=== PATIENT | female | born 1990 | race Caucasian/White ===

== ENCOUNTER 2016-07-27 17:46 | Emergency (ER) | payer MEDICAID ==
[~2016-07-27] VITALS: Ht 172.7 cm; Wt 75.7 kg
[~2016-07-27 17:46] MED LIST: ACET-62 PO; NO ROUTINE MEDS; SULF1TAB42 PO
--- OUTSIDE RECORDS SUMMARY | 2016-07-27 17:52 | XMS REPORT | Continuity of Care Document ---
Author Author Naye Yancey Address Unknown Phone Unavailable Care Team Providers Care Control Room Technician Name Role Phone [employer] Unavailable Unavailable Problems Medications Allergies, Adverse Reactions, Alerts Immunizations Results Order Name Results Value Reference Range Date Interpretation Comments Source Parent NGS Parent NGS Genomics Case Created 01/27 NA This order is for collection purposes only. The Genomics case will be created seperately.
[facility] zGayle Gen Kassi Gen 01/27/2016 [facility] Final Report Final Report Blood [id number] DNA isolation/storage for future study. [id number] Lab use only. Electronically signed by: Nay Haro 03/21/2016 09:08</br> 01/27/2016 Electronically signed by: Nay Haro 03/21/2016 09:08 [facility] Vital Signs Encounters Location Location Details Encounter Type Encounter Number Reason For Visit Attending Provider ADM Date DC Date Status Source [facility] REF [id number] Sisi Melara 01/27/2016 01/27/2016 Active [facility] Procedures Plan of Care Social History Assessment and Plan Family History Value Date Source Advance Directives Order Name Results Value Date Source
--- OUTSIDE RECORDS SUMMARY | 2016-07-27 17:52 | XMS REPORT | Continuity of Care Document ---
Author Author [facility] Organization [facility] Address Unknown Phone Unavailable Support Name Relationship Address Phone MONTANA RIBERA MD Caregiver [address] [place] [address] [place] [address] Unavailable SUPRIYA DENG Next Of Kin [address], [place] [id number] Insurance Providers Guarantor Marino Deng Address [address] [place] [address] Email DENIED 06-25-16 Payer [facility] Community Plan Policy Number [id number] Subscriber's Name Marino Deng Relationship 18 Self Effective Date 16 Expiration Date 16 Chief Complaint and Reason for Visit Chief Complaint Flank Pain Reason for Visit [id number] Problems Active Problems Medical Problem Onset Date Status MRSA (methicillin resistant Staphylococcus aureus) Unknown (spontaneous vaginal delivery) Unknown Past Problems Medical Problem Onset Date Abscess Unknown Sacroiliitis Unknown Medications Current Home Medications Medication Dose Units Route Directions Days Qty Instructions Start Date Acetaminophen 500 Mg Tablet 1,000 Mg Oral Every 8 Hours as needed for Pain 06/25/16 No Routine Meds 06/22/16 Sulfamethoxazole/Trimethoprim (Bactrim Ds Tablet) 1 Each Tablet 1 Tab Oral Twice A Day 10 Days 20 Tablet 06/22/16 Social History Social History Problem Response Recorded Date/Time Onset Date Status Hx Substance Use No 06/25/2016 7:51pm Not Applicable Not Applicable Hx Alcohol Use Y OCCASIONALLY 06/25/2016 7:51pm Not Applicable Not Applicable Has the pt used tobacco in the last 12 months No 12/24/2015 6:40am Not Applicable Not Applicable Query Response Start Date Stop Date Smoking Status Former smoker Hospital Discharge Instructions No hospital discharge instructions. Plan of Care Discharge Date 06/25/16 8:40pm Disposition 01 DISCHARGED HOME, SELF-CARE Condition at Discharge Stable Instructions/Education Provided Sacroiliitis (ED) Prescriptions See Medication Section Additional Instructions/Education Take some Ibuprofen or Naproxen on an as needed basis. May also try some Tylenol as needed as well. Use the Cyclobenzaprine as needed for pain. If you are not improving at all then follow with your primary care provider. Care Plan and Goals Physician Care Plan Problem:Sacroiliitis Goal: Follow up with primary care provider Instructions: Take medications and follow care plan as discussed/written Functional Status No functional status results. Allergies, Adverse Reactions, Alerts Allergen Type Severity Reaction Status Last Updated Metoclopramide Allergy Unknown ANXIETY Active 06/25/16 Immunizations Query Response on File Recorded Date/Time DTaP Vaccine History UTD, PER PT 06/25/16 7:51pm Influenza Vaccine Hx NOT REC'D 06/25/16 7:51pm Tdap Vaccine Hx 12/24/15 12/24/15 2:30pm Vital Signs Acute Vital Signs Vital Response Date/Time Temperature (Fahrenheit) 98.5 deg F (96.8 - 99.1) 06/25/2016 8:35pm Temperature (Calculated Celsius) 36.23225 degrees C (36.0 - 37.3) 06/25/2016 8:35pm Pulse Rate (adult) 75 bpm (60 - 100) 06/25/2016 8:35pm Respiratory Rate 15 breaths/min (10 - 20) 06/25/2016 8:35pm O2 Sat by Pulse Oximetry 99 % (90 - 100) 06/25/2016 8:35pm Blood Pressure 115/60 mm Hg 06/25/2016 8:35pm Height (Feet) 5 feet 06/25/2016 7:46pm Height (Inches) 8.00 inches 06/25/2016 7:46pm Weight (Kilograms) 79.100 kg 06/25/2016 7:46pm Body Mass Index (BMI) 26.0 06/25/2016 7:46pm Results Laboratory Results Test Name Result Units Flags Reference Collection Date/Time Result Date/ Time Comments Urine Collection Type CLEANCATCH-MIDSTREAM 06/25/2016 7:59pm 2016 8:09pm Urine Color YELLOW YELLOW 06/25/2016 7:59pm 06/25/2016 8:09pm Urine Turbidity CLEAR CLEAR 06/25/2016 7:59pm 06/25/2016 8:09pm Urine Specific [place] 1.025 1.015-1.025 06/25/2016 7:59pm 2016 8:09pm Urine pH 5.5 5.0-8.0 06/25/2016 7:59pm 06/25/2016 8:09pm Urine Leukocyte Esterase NEGATIVE NEGATIVE 06/25/2016 7:59pm 2016 8:09pm Urine Nitrite NEGATIVE NEGATIVE 06/25/2016 7:59pm 06/25/2016 8:09pm Urine Protein NEGATIVE NEGATIVE 06/25/2016 7:59pm 06/25/2016 8:09pm Urine Glucose (UA) NEGATIVE NEGATIVE 06/25/2016 7:59pm 06/25/2016 8: 09pm Urine Ketones NEGATIVE NEGATIVE 06/25/2016 7:59pm 06/25/2016 8:09pm Urine Urobilinogen 0.2 EU/DL NORMAL 06/25/2016 7:59pm 06/25/2016 8: 09pm Urine Bilirubin NEGATIVE NEGATIVE 06/25/2016 7:59pm 06/25/2016 8: 09pm Urine Blood NEGATIVE NEGATIVE 06/25/2016 7:59pm 06/25/2016 8:09pm Urinalysis Comment MICROSCOPIC NOT IND. 06/25/2016 7:59pm 2016 8:09pm Procedures No known history of procedures. Encounters Encounter Location Arrival/Admit Date Discharge/Depart Date Attending Provider Departed Emergency Room [facility] 06/25/16 7:39pm 06/25/16 8: 40pm MONTANA RIBERA MD Departed Emergency Room [facility] 06/22/16 2:36pm 06/22/16 4: 00pm ANA LILIA TOWNSEND DO Recent Diagnosis
[2016-07-27 17:53] VITALS: Ht 172.7 cm; Wt 75.7 kg
--- OUTSIDE RECORDS SUMMARY | 2016-07-27 18:19 | XMS REPORT | Continuity of Care Document ---
Author Author Naye Yancey Address Unknown Phone Unavailable Care Team Providers Care Noodle Press Operator Name Role Phone [employer] Unavailable Unavailable Problems Medications Allergies, Adverse Reactions, Alerts Immunizations Results Order Name Results Value Reference Range Date Interpretation Comments Source Parent NGS Parent NGS Genomics Case Created 01/27 NA This order is for collection purposes only. The Genomics case will be created seperately.
[facility] zGayle Gen Kassi Gen 01/27/2016 [facility] Final Report Final Report Blood [id number] DNA isolation/storage for future study. [id number] Lab use only. Electronically signed by: Nay Haro 03/21/2016 09:08</br> 01/27/2016 Electronically signed by: Nay Haro 03/21/2016 09:08 [facility] Vital Signs Encounters Location Location Details Encounter Type Encounter Number Reason For Visit Attending Provider ADM Date DC Date Status Source [facility] REF [id number] Sisi Melara 01/27/2016 01/27/2016 Active [facility] Procedures Plan of Care Social History Assessment and Plan Family History Value Date Source Advance Directives Order Name Results Value Date Source
--- NOTE | 2016-07-27 18:41 | ERPDOC ---
Departure Disposition Decision Date: Jul 27, 2016 Disposition Decision Time: 18:39 Disposition: 01 DISCHARGED HOME, SELF-CARE Impression Impression Impression: Primary Impression: Left wrist sprain Encounter type: initial encounter Qualified Codes: S63.502A - Unspecified sprain of left wrist, initial encounter Severity: Moderate Condition: Stable Seen By: Mid-level only Patient Instructions: Wrist Sprain (ED) Problems/Meds/Labs Reviewed?: Yes Medications reviewed and manag: Yes Additional Instructions: Wear the splint as needed for pain. Ice and elevate. If this is not improving at all in the next 10-14 days then please follow up with your primary care provider for re-xray of the wrist. Follow up care ordered?: Yes Mental Status: Alert HPI General Chief Complaint: Upper Extremity Injury Stated Complaint: LEFT WRIST PAIN Time Seen by Provider: 18:08 Source: patient Exam Limitations: no limitations HPI Hand/Forearm Initial Comments Yesterday she was at home and fell. She landed on the left wrist and has had pain in the radial aspect of the wrist since then around the area of the snuffbox. She states that she had injured this wrist when she was 14 and had to wear a cast for a month. Did not follow up with the wrist after that. Has pain with flexion and/or extension of the wrist. Denies any numbness/tingling in the fingers. Occurred At: home Onset: Rapid Duration: 12-24 hrs Severity: moderate Location: left: wrist Method of Injury: fell Associated Symptoms: pain with extension, pain with flexion, pain with grasp, DENIES: bruising, numbness, pallor, red streaks, redness, swelling, weakness Allergies: Coded Allergies: metoclopramide (Verified Allergy, Unknown, ANXIETY, 07/27/16) Past History Past Medical History Pt denies signifigant [facility] Surgical History Denies Surgeries Family History Family History: Negative Social History Tobacco Usage: none Alcohol Usage: none Drug Usage: none IV Drug Use: No Review of Systems Constitutional Constitutional: DENIES: chills, dizziness, fatigue, fever, weakness Musculoskeletal General: joint pain (left wrist), pain (left wrist), tenderness (left distal radius), DENIES: joint swelling Neurological General: DENIES: numbness, tingling Exam General General Nourishment: well nourished, well developed, appears stated age, no acute distress, adult General Body Habitus: well groomed Vital Signs: RN Vital Signs have been reviewed: Yes, Temperature: 98.3, Source : Oral, Heart Rate: 88, Respiratory Rate: 20, BP: 116/63, Pulse Oximetry: 98 Height (Feet): 5 Height (Inches): 8.00 [place]rak Hand/Forearm Hand/Forearm : Upper Extremity: Left Elbow: extension intact, flexion intact, NOT FOUND: deformity, ecchymosis, erythema, swelling, tender Forearm: pronation intact, supination intact, NOT FOUND: deformity, ecchymosis, erythema, laceration, swelling, tender Wrist: ROM intact (but limited due to pain), snuff box tenderness (mild), NOT FOUND: deformity, ecchymosis, erythema, swelling, tender, thenar eminence tender Hand: NOT FOUND: deformity, ecchymosis, erythema, laceration, swelling, tender Fingers: cap refill <2sec ea digit, soft touch intact, NOT FOUND: deformity , ecchymosis, erythema, impaired abduction, impaired adduction, impaired extension, impaired flexion, impaired grasp, laceration, nail avulsion, rotational deformity, subungual hematoma, swelling, tender Radial Pulse: 2+ Neurologic RN Documented GCS Eye Opening: (4)Spontaneous Verbal: (5)Oriented Motor: (6)Obeys Commands Total: Differential Diagnoses Considering: Compartment Syndrome, Contusion, Dislocation, Fracture, Sprain, Strain Procedures Splinting Procedure Splint : Site: left wrist Pre-placement NV: FOUND: cap refill < 3 sec, good movement, good sensation Pre-Made Type: metal Splint: volar Post-placement NV: FOUND: cap refill < 3 sec, good movement, good sensation Applied by: PA/POTTERY DECORATOR Progress Results/Orders Orders Procedure Category Date Status Time Wrist Left 3-4 Views RAD 07/27/16 Taken Progress Progress I do not appreciate a fracture today on xray. Will have her wear a metal metacarpal splint for comfort. Ice and elevate the wrist. If any further issues/ concerns then follow up with primary care provider. May need repeat films in 10- 14 days if still having pain. ERIK STEWART APRN Jul 27, 2016 18:41
[2016-07-27 18:55] VITALS: BP 116/63; PULSE 88; RESP 20; TEMP 98.3; O2SAT 98
--- NOTE | 2016-07-27 18:55 | NUR ---
DEPART VERBAL AND WRITTEN DISCHARGE INSTRUCTIONS GIVEN AND UNDERSTOOD. CONDITION STABLE. RELEASED AMBULATORY FROM ED WITH CHILD.
--- NOTE | 2016-07-28 08:49 | DI ---
Indication: ITS.REASON: left wrist pain PROCEDURE: WRIST LEFT 4 VIEWS: Encounter: Initial Comparison: None Findings: There is no acute fracture, dislocation or malalignment identified. Impression: No acute osseous abnormality. .
== END 2016-07-27 18:55 | disposition home or self-care (01) ==
LOC: ED 17:46
DX: S63.502A Unspecified sprain of left wrist, initial encounter (principal); W19.XXXA Unspecified fall, initial encounter; Y93.9 Activity, unspecified; Y92.009 Unspecified place in unspecified non-institutional (private) residence as the place of occurrence of the external cause; Y99.8 Other external cause status
CPT/HCPCS: 73110; 99283; L3908